=== PATIENT | female | born 1950 | race Caucasian/White ===

== ENCOUNTER 2021-09-22 08:16 | Emergency (ER) | payer MEDICARE ==
[~2021-09-22 08:16] MED LIST: ASPIR 8181 MG PO; AUGMENTIN 875-1 EACH PO; BRILINTA90 MG PO; CLARITIN10 MG PO; FLAGYL500 MG PO; LIPITOR TAB 2020 MG PO; LOPRESSOR100 MG PO; NOVOLIN 70100 UNIT/1 SQ; SIMVASTATIN20 MG PO; TRIAMTERENE-HC1 EACH PO; VITAMIN D3400 UNIT PO; ZESTRIL 40 MG T40 MG PO; ZOFRAN4 MG PO
[2021-09-22 09:16] LABS: HEMOGLOBIN 11.9 gm/dl (12.3-15.3); RED BLOOD COUNT 4.36 M/UL (4.00-5.10); WHITE BLOOD COUNT 20.6 K/UL (4.5-11.0)
[2021-09-22] MEDS ORDERED: PHENERGAN 12.12.5 M1 PO (13:57)
[2021-09-22] MEDS ORDERED: CEPHALEXIN500 MG PO (13:57)
== END 2021-09-22 14:10 | disposition home or self-care (01) ==
LOC: ER1 08:16
PROVIDERS: Family Medicine
DX: R42 Dizziness and giddiness (principal); D72.829 Elevated white blood cell count, unspecified; R77.8 Other specified abnormalities of plasma proteins; R11.2 Nausea with vomiting, unspecified; I12.9 Hypertensive chronic kidney disease with stage 1 through stage 4 chronic kidney disease, or unspecified chronic kidney disease; E11.22 Type 2 diabetes mellitus with diabetic chronic kidney disease; Z79.4 Long term (current) use of insulin; Z88.8 Allergy status to other drugs, medicaments and biological substances
CPT/HCPCS: 70450; 71045; 80053; 81001; 82550; 82553; 83735; 83874; 84484; 85025; 93005; 96374; 99285; J2405; J7030